=== PATIENT | female | born 1995 | race Hispanic/Latino ===

== ENCOUNTER 2023-08-06 21:15 | Emergency (ER) | payer BC ==
[~2023-08-06] VITALS: Ht 162.6 cm; Wt 124.7 kg
[~2023-08-06 21:15] MED LIST: AZIT200S47 PO; CALC-1198 PO; PREN-196 PO
[2023-08-07 00:30] VITALS: BP 141/72; PULSE 82; RESP 18; O2SAT 98
== END 2023-08-07 00:40 | disposition home or self-care (01) ==
LOC: EDH 21:15
DX: H53.8 Other visual disturbances (principal); R51.9 Headache, unspecified; Z79.899 Other long term (current) drug therapy
CPT/HCPCS: 70450; 81025